=== PATIENT | female | born 1985 | race Caucasian/White ===

== ENCOUNTER 2016-10-20 01:50 | Emergency (ER) | payer BC | END 2016-10-20 05:16 | disposition home or self-care (01) | LOC: ER 01:50 | DX: R07.9 Chest pain, unspecified (principal); G43.909 Migraine, unspecified, not intractable, without status migrainosus; I10 Essential (primary) hypertension; F17.210 Nicotine dependence, cigarettes, uncomplicated; Z79.899 Other long term (current) drug therapy; Z90.49 Acquired absence of other specified parts of digestive tract | CPT/HCPCS: 36415; 96361; 96374; 96375; J1200; J1885; J2550; J2765 ==